=== PATIENT | female | born 1990 | race Caucasian/White ===

== ENCOUNTER 2024-01-25 20:06 | Inpatient (IN) | payer OTHER ==
[2024-01-25] MEDS ORDERED: hydrALAZINE 20 MG/ML VIAL SLOW IVP PRN (20:26)
[2024-01-25 20:41] VITALS: BMI 25.8
[2024-01-25 21:30] LABS: Fetal Membranes Rupture RUPTURE DETECTED (No Rupture)
[2024-01-25] MEDS ORDERED: Promethazine HCl 25 MG/ML VIAL IM PRN (21:40)
[2024-01-25] MEDS ORDERED: Docusate 100 MG CAP PO PRN (21:40)
[2024-01-25] MEDS ORDERED: Carboprost 250 MCG/ML AMP IM PRN (21:40)
[2024-01-25] MEDS ORDERED: Ibuprofen 800 MG TAB PO PRN (21:40)
[2024-01-25] MEDS ORDERED: Acetaminophen 500 MG TAB PO PRN (21:40)
[2024-01-25] MEDS ORDERED: Tranexamic Acid 1,000 MG/10 ML VIAL IVP PRN (21:40)
[2024-01-25] MEDS ORDERED: Lidocaine 1% (PF) 30 ML VIAL SC PRN (21:40)
[2024-01-25] MEDS ORDERED: Misoprostol 200 MCG TAB PR PRN (21:40)
[2024-01-25] MEDS ORDERED: Oxytocin 30 units/NS 500 ML 500 ML IV SCH (21:45)
[2024-01-25 22:34] LABS: Hematocrit 37.2 % (34.9-44.5); Hemoglobin 12.9 g/dL (12.0-15.5); Mean Corpuscular HGB CONC 34.7 g/dL (32.0-36.0); Mean Corpuscular Hemoglobin 33.4 pg (27.0-33.0); Mean Corpuscular Volume 96.4 fL (81.6-98.3); Mean Platelet Volume 11.4 fL (7.4-10.4); Platelet Count 185 10x3/uL (150-450); RBC Distribution Width 12.5 % (11.5-14.5); Red Blood Cell (RBC) Count 3.86 10x6/uL (3.90-5.03); White Blood Cell (WBC) Count 10.5 10x3/uL (3.5-10.5)
[2024-01-25 22:56] LABS: ALT (SGPT) 17 U/L (8-55); AST (SGOT) 24 U/L (5-34); Albumin 3.3 g/dL (3.5-5.0); Alkaline Phosphatase 111 U/L (40-110); Anion Gap 15 mmol/L (10-20); BUN (Urea Nitrogen) 15 mg/dL (7.0-18.7); Bilirubin, Total 1.3 mg/dL (0.2-1.2); Calc. Creatinine Clearance 120 mL/min (70-130); Calcium 9.7 mg/dL (7.8-10.44); Carbon Dioxide 23 mmol/L (22-29); Chloride 103 mmol/L (98-107); Estimated GFR 106; Globulin 3.1 g/dL (2.4-3.5); Glucose 78 mg/dL (70-105); Potassium 4.2 mmol/L (3.5-5.1); Protein, Total 6.4 g/dL (6.0-8.3); Sodium 137 mmol/L (136-145)
[2024-01-25 23:16] LABS: Hep B Surf Ag - L&D Non-Reactive S/CO (NonReactive); Syphilis Antibody Nonreactive (Nonreactive); Syphilis Antibody Index 0.06 S/CO (<1.00 Non-Reactive)
[2024-01-26] MEDS: Lactated Ringer's 1,000 ML IV SCH (02:53)
[2024-01-26] MEDS: Ondansetron PF 4 MG/2 ML Vial IVP PRN (02:53)
[2024-01-26] MEDS: fentaNYL/Ropivacaine Epidural 100 ML ONE (04:56)
[2024-01-26] MEDS ORDERED: diphenhydrAMINE 50 MG/ML VIAL IVP PRN (05:35)
[2024-01-26] MEDS ORDERED: Ondansetron PF 4 MG/2 ML Vial IVP PRN (05:35)
[2024-01-26] MEDS ORDERED: Naloxone HCl 0.4 mg/ml Vial IVP PRN ×2 (05:35)
[2024-01-26] MEDS ORDERED: Acetaminophen 325 MG TAB PO PRN (05:35)
[2024-01-26] MEDS ORDERED: Lactated Ringer's 500 ML IV PRN (05:35)
[2024-01-26] MEDS ORDERED: Moisturizing Cream (Eucerin) 113 GM JAR TOP PRN (05:35)
[2024-01-26] MEDS ORDERED: Promethazine HCl 25 MG/ML VIAL IM PRN (05:35)
[2024-01-26] MEDS ORDERED: Communication Order-Pharmacy FS SCH (05:45)
[2024-01-26] MEDS: ePHEDrine Sulfate 50 MG/10 ML VIAL SLOW IVP PRN (06:14)
[2024-01-26] MEDS: Oxytocin 30 units/NS 500 ML 500 ML IV SCH (11:08)
[2024-01-26] MEDS: fentaNYL 2 mcg/Ropivacaine 0.2% Epidural 100 ML CADD EPIDURAL SCH (14:15)
[2024-01-26] MEDS ORDERED: Benzocaine-Menthol 82.5 ML CAN TOP PRN (14:35)
[2024-01-26] MEDS ORDERED: Bisacodyl 10 MG SUPP PR PRN (14:35)
[2024-01-26] MEDS ORDERED: diphenhydrAMINE 25 MG CAP PO PRN (14:35)
[2024-01-26] MEDS ORDERED: Lanolin Ointment 7 GM TUBE TOP PRN (14:35)
[2024-01-26] MEDS ORDERED: hydrALAZINE 20 MG/ML VIAL SLOW IVP PRN (14:35)
[2024-01-26] MEDS ORDERED: traMADol HCl 50 MG TAB PO PRN ×2 (14:35)
[2024-01-26] MEDS ORDERED: Preparation H Ointment 28 GM TUBE PR PRN (14:35)
[2024-01-26] MEDS ORDERED: Milk Of Magnesia 30 ML UDCUP PO PRN (14:35)
[2024-01-26] MEDS: Ferrous Sulfate 325 MG TAB PO SCH (17:47)
[2024-01-26] MEDS: Ibuprofen 800 MG TAB PO SCH ×2 (17:47→21:34)
[2024-01-26] MEDS: Docusate 100 MG CAP PO SCH (21:34)
[2024-01-27] MEDS ORDERED: Bupivacaine PF 0.5% 30 ML VIAL ONE (07:00)
[2024-01-27] MEDS ORDERED: ePHEDrine Sulfate 50 MG/10 ML VIAL ONE (07:00)
[2024-01-27] MEDS ORDERED: Bupivacaine/Epinephrine 0.25% 30 ML VIAL ONE (07:00)
[2024-01-27] MEDS: Prenatal Vitamin 1 TAB PO SCH (08:25)
[2024-01-27] MEDS ORDERED: Boostrix 0.5 ML (Tdap) VIAL (>/=7 yrs of age) IM ONE (09:00)
[2024-01-28 07:44] VITALS: BP 97/59; TEMP 97.9
== END 2024-01-28 08:03 | disposition home or self-care (01) | DRG 807 ==
LOC: CSHLD/OP 20:06 → CSHLD 21:40 → CSHPP 01-26 17:00
PROVIDERS: ADMIT Obstetrics & Gynecology; ATTEND Obstetrics & Gynecology
PROC: 10E0XZZ Delivery of Products of Conception, External Approach (ICD-10-PCS; principal; 2024-01-26)
PROC: 0KQM0ZZ Repair Perineum Muscle, Open Approach (ICD-10-PCS; 2024-01-26)
DX: O48.0 Post-term pregnancy (principal); Z37.0 Single live birth; Z3A.41 41 weeks gestation of pregnancy; K21.9 Gastro-esophageal reflux disease without esophagitis; O99.62 Diseases of the digestive system complicating childbirth; Z79.899 Other long term (current) drug therapy; D64.9 Anemia, unspecified; O99.02 Anemia complicating childbirth; Z88.0 Allergy status to penicillin; Z91.048 Other nonmedicinal substance allergy status; O70.1 Second degree perineal laceration during delivery; Z91.040 Latex allergy status
CPT/HCPCS: 36415; 51702; 80053; 84112; 85027; 86780; 86850; 86900; 86901; 87340; 87480; 87510; 87660; 99285; J0665; J2405; J2590; J7120

== ENCOUNTER 2024-03-10 20:38 | Emergency (ER) | payer OTHER ==
[2024-03-11] MEDS ORDERED: Clindamycin 150 MG CAP ONE (01:11)
[2024-03-11] MEDS ORDERED: traMADol HCl 50 MG TAB ONE (01:11)
== END 2024-03-11 01:21 | disposition home or self-care (01) ==
LOC: CSHERS 20:38
DX: N61.0 Mastitis without abscess (principal)
CPT/HCPCS: 99283